=== PATIENT | female | born 1980 | race Caucasian/White ===

== ENCOUNTER 2020-12-08 07:36 | Outpatient (CLI) | payer OTHER | END 2020-12-08 07:37 | disposition home or self-care (01) | LOC: TBSIIMAG 07:36 | PROVIDERS: ATTEND Physician Assistant | DX: M25.561 Pain in right knee (principal); G89.29 Other chronic pain; M17.11 Unilateral primary osteoarthritis, right knee; S83.241A Other tear of medial meniscus, current injury, right knee, initial encounter; M25.461 Effusion, right knee; M71.21 Synovial cyst of popliteal space [Baker], right knee ==

== ENCOUNTER 2021-01-16 18:23 | Outpatient (CLI) | payer OTHER ==
[2021-01-16 21:04] LABS: BHCG - Serum Negative (NEGATIVE); Pregs Control Background? CLEAR/WHITE (CLR/WHITE); Pregs Control Bar Appear? YES (CONTROL BAR)
[2021-01-16 21:15] LABS: #Basophils 0.1 10x3/uL (0.0-0.2); #Eosinphils 0.4 10x3/uL (0.0-0.5); #Monocytes 0.6 10x3/uL (0.0-1.1); #Neutrophils 4.3 10x3/uL (1.5-8.4); %Basophils 1.1 % (0.0-2.0); %Eosinophils 4.6 % (0.0-6.0); %Monocytes 6.8 % (0.0-10.0); %Neutrophils 51.1 % (40.0-75.0); Hemoglobin 12.5 g/dL (12.0-15.5); Mean Corpuscular Hemoglobin 29.8 pg (27.0-33.0); Mean Corpuscular Volume 90.5 fl (81.6-98.3); Mean Platelet Volume 10.8 fl (7.4-10.4); Platelet Count 348 10x3/uL (150-450); RBC Distribution Width 12.8 % (11.5-14.5); Red Blood Cell (RBC) Count 4.19 10x6/uL (3.90-5.03); White Blood Cell (WBC) Count 8.4 10x3/uL (3.5-10.5)
[2021-01-17 16:47] LABS: SARS-CoV-2 PCR by NAA Not Detected (NotDetected)
== END 2021-01-16 18:24 | disposition home or self-care (01) ==
LOC: LABBT 18:23
PROVIDERS: ATTEND Orthopaedic Surgery
DX: Z01.812 Encounter for preprocedural laboratory examination (principal); G56.03 Carpal tunnel syndrome, bilateral upper limbs; Z20.822 Contact with and (suspected) exposure to COVID-19
CPT/HCPCS: 84703; 85025; 87635; U0003; U0005

== ENCOUNTER 2021-01-19 05:54 | Day surgery (SDC) | payer OTHER ==
[2021-01-18 10:54] VITALS: BMI 47.5
[2021-01-19] MEDS ORDERED: Fentanyl 100 MCG/2 ML VIAL ONE ×2 (06:37→07:07)
[2021-01-19] MEDS ORDERED: Lidocaine 1% w/Epinephrine 1:100K 20 ML VIAL ONE (06:43)
[2021-01-19] MEDS ORDERED: Midazolam HCl 5 mg/5 ml Vial ONE (07:08)
[2021-01-19] MEDS ORDERED: Propofol 500 MG/50 ML VIAL ONE (07:08)
[2021-01-19] MEDS ORDERED: HYDROcodone/Acetaminophen 5/325 mg Tablet ONE (08:45)
== END 2021-01-19 09:28 | disposition home or self-care (01) ==
LOC: SDC 05:54
PROVIDERS: ATTEND Orthopaedic Surgery
PROC: 01N50ZZ Release Median Nerve, Open Approach (ICD-10-PCS; principal; 2021-01-19)
DX: G56.03 Carpal tunnel syndrome, bilateral upper limbs (principal); Z91.048 Other nonmedicinal substance allergy status
CPT/HCPCS: J0690; J2250; J2704; J3010